=== PATIENT | female | born 1990 | race Caucasian/White ===

== ENCOUNTER → 2016-10-17 | Outpatient (CLI) | payer MEDICAID, OTHER ==
--- NOTE | 2016-10-17 13:26 | XR ---
EXAMINATION TYPE: XR foot complete LT , 3 VIEWS DATE OF EXAM ORDERED: 10/17/2016 HISTORY: [id number] lt foot pain. COMPARISON: None. FINDINGS: No fracture, dislocation or other acute osseous lesion is seen. Note is made of a small plantar calcaneal spur. IMPRESSION: 1. NO ACUTE OSSEOUS LESION. 2. TINY, PLANTAR CALCANEAL SPUR.
== END | disposition home or self-care (01) ==
LOC: RADXRYALE 12:58
PROVIDERS: ATTEND Physician Assistant Medical
DX: M77.32 Calcaneal spur, left foot (principal)

== ENCOUNTER → 2024-01-01 | Outpatient (CLI) | payer MEDICARE ==
--- NOTE | 2024-01-01 09:36 | US ---
EXAMINATION TYPE: US abdomen complete DATE OF EXAM: 01/01/2024 COMPARISON: NONE CLINICAL INDICATION: Female, 33 years old with history of R79.89 ABNORMAL LAB VALUES; Elevated liver enzymes TECHNIQUE: Grayscale and color Doppler imaging of the abdomen was performed. FINDINGS: EXAM MEASUREMENTS: Liver Length: 13.7 cm Gallbladder Wall: 0.2 cm CBD: 0.5 cm Spleen: 11.4 cm Right Kidney: 9.9 x 3.4 x 3.8 cm Left Kidney: 10.8 x 4.6 x 5.1 cm Pancreas: Obscured by bowel gas Liver: wnl Gallbladder: no evidence of stones Evidence for sonographic Luna's sign: no CBD: wnl Spleen: wnl Right Kidney: no evidence of hydronephrosis Left Kidney: no evidence of hydronephrosis Upper IVC: wnl Abd Aorta: wnl The liver is homogenous. The intrahepatic portion of the IVC and proximal abdominal aorta are within normal limits. There is no evidence of cholelithiasis. Common bile duct is unremarkable. The visu alized portions of the pancreas are homogenous. The spleen is unremarkable. Kidneys are symmetric a nd free of hydronephrosis. No renal lesions are seen. IMPRESSION: Unremarkable study [facility] Arielle Bradford, , 01/01/2024 9:34 AM
== END | disposition home or self-care (01) ==
LOC: RADUSWWP 07:35
PROVIDERS: ATTEND Family Medicine
CPT/HCPCS: 76700